=== PATIENT | male | born 1940 | race Caucasian/White ===

== ENCOUNTER 2018-12-22 15:31 | Emergency (ER) | payer MEDICARE, OTHER ==
[~2018-12-22] VITALS: Ht 185.4 cm; Wt 90.7 kg
--- NOTE | 2018-12-22 15:31 | NUR ---
PT EVE ALS BY [facility] AND PLACED IN BED 10.
[2018-12-22 15:39] VITALS: BP 141/71
--- NOTE | 2018-12-22 15:41 | NUR ---
PT EVE, PER EMS PT HAD UNWITNESSED FALL AND WAS FOUND DOWN IN PARKING LOT AT HIS WORK. PT ON ARRIVAL IS AWAKE BUT UNALBE TO ANSWER QUESTIONS ON PT HISTORY OR FOLLOW ALL COMMANDS,[id number], NO FACIAL DROP, NO SLURRED SPEECH, NO ARM DRIFT NOTED. LACERATION NOTED TO RT EYEBROW, NO ACTIVE BLEEDING. MEDHX:[id number] RX:UNKOWN
[2018-12-22] MEDS ORDERED: ASPI-1718 PO (15:45)
[2018-12-22] MEDS ORDERED: LOSA25TA32 PO (15:45)
[2018-12-22] MEDS ORDERED: PIOG15TA24 PO (15:45)
[2018-12-22] MEDS ORDERED: SYN.05 PO (15:45)
[2018-12-22] MEDS ORDERED: ISOS10TA9 PO (15:45)
[2018-12-22] MEDS ORDERED: METF500T2 PO (15:45)
[2018-12-22] MEDS ORDERED: OMEP20EC11 PO (15:45)
[2018-12-22] MEDS ORDERED: CARV3.12 PO (15:45)
[2018-12-22] MEDS ORDERED: FINA5TAB1 PO (15:45)
[2018-12-22] MEDS ORDERED: ATOR10TA PO (15:45)
[2018-12-22] MEDS ORDERED: NACL 0.9% 1,000 ML IV ONE (15:50)
--- NOTE | 2018-12-22 15:52 | NUR ---
SPOKE WITH FAVIOLA , MADE HER AWARE OF PT SITUATION, SHE IS TO COME TO HOSPITAL WHEN DAUGHTER GETS HOME. HOME PHONE - [phone]
--- NOTE | 2018-12-22 16:23 | NUR ---
PT BACK FROM CT AND PLACED IN BED 10.
[2018-12-22] MEDS ORDERED: WARF3TAB PO (17:02)
--- NOTE | 2018-12-22 17:11 | NUR ---
PT UNABLE TO PROVIDE URINE SAMPLE, YOLETTE MURRAY MADE AWARE, PER YOLETTE MURRAY OKAY TO NOT COLLECT URINE
[2018-12-22 17:41] LABS: BASOPHILS % (AUTO) 0.3 % (0.0-2.0); EOSINOPHILS # (AUTO) 0.1 K/uL (0-0.4); EOSINOPHILS % (AUTO) 0.9 % (0.0-4.0); HEMATOCRIT 38.3 % (36-52); HEMOGLOBIN 12.5 g/dL (12.0-18.0); LYMPHOCYTES # (AUTO) 0.7 K/uL (2.0-11.5); LYMPHOCYTES % (AUTO) 10.5 % (20.5-51.1); MEAN CORPUSCULAR HEMOGLOBIN 32 pg (27-31); MEAN CORPUSCULAR HGB CONC 33 g/dL (33-37); MEAN CORPUSCULAR VOLUME 97.7 fL (80-94); MONOCYTES # (AUTO) 0.3 K/uL (0.8-1.0); MONOCYTES % (AUTO) 4.3 % (1.7-9.3); NEUTROPHILS # (AUTO) 5.2 K/uL (1.8-7.7); PLATELET COUNT (AUTO) 133 K/uL (140-450); RED BLOOD CELL COUNT(AUTO) 3.92 MIL/uL (4.20-6.10); RED CELL DISTRIBUTION WIDTH 16.6 % (11.6-13.7); WHITE BLOOD COUNT (AUTO) 6.2 K/uL (4.8-10.8)
[2018-12-22 18:00] LABS: PROTHROMBIN TIME 20.1 secs (10.8-13.4)
[2018-12-22] MEDS ORDERED: KEP500 PO (18:15)
[2018-12-22] MEDS ORDERED: MULT-2527 PO (18:15)
[2018-12-22] MEDS ORDERED: CALCIUM D PO (18:15)
[2018-12-22] MEDS ORDERED: [UNRECOGNIZED DRUG - OTHER] PO (18:15)
[2018-12-22] MEDS ORDERED: XALOS OP (18:15)
[2018-12-22] MEDS ORDERED: PHYTONADIONE 10 MG/ML AMP IV ONE (18:30)
[2018-12-22] MEDS ORDERED: PROTHROMBIN COMPLEX HUMAN 500 UNITS KIT IV ONE (18:30)
--- NOTE | 2018-12-22 18:31 | NUR ---
SPOKE WITH BASIM FROM [facility] FOR REPORT.
[2018-12-22 18:45] LABS: ANION GAP 11.3 (8-16); CARBON DIOXIDE 27.8 mmol/L (21-32); CHLORIDE 106 mmol/L (98-107); POTASSIUM 4.1 mmol/L (3.5-5.1); SODIUM SERUM 141 mmol/L (136-145)
[2018-12-22] MEDS ORDERED: PHYTONADIONE 10 MG in NACL 0.9% 50 ML IV ONE (18:45)
[2018-12-22 18:46] LABS: ALBUMIN 3.5 g/dL (3.4-5.0); ASPARTATE AMINOTRANSFERASE 17 U/L (15-37); CREATININE 0.7 mg/dL (0.7-1.3); GLUCOSE 98 mg/dL (74-106); TOTAL BILIRUBIN 0.9 mg/dL (0.0-1.0); UREA NITROGEN, BLOOD 19 mg/dL (7-18)
[2018-12-22] MEDS ORDERED: LIDOCAINE/EPI 1% 1:100000 20 ML VIAL INJ ONE (18:50)
[2018-12-22] MEDS ORDERED: COMMUNICATION ORDER MC PRN (19:10)
[2018-12-22 19:55] VITALS: BP 141/69
--- NOTE | 2018-12-22 19:55 | NUR ---
Patient to be transferred to [facility] ER. Is being transferred due to [INSURANCE]. Receiving facility has accepting physician and available space. ER physician has signed transfer form. Patient or responsible republican has agreed to transfer and signed form. Patient belongings inventoried and will be sent with patient. Copy of nursing notes, lab reports, EKG, Physicians Orders and X-rays to be sent with patient. Report called to [TIERA STALLWORTH ] at receiving facility. [[facility]] ambulance service has been called for transfer. ETA is [[id number]].
--- NOTE | 2018-12-22 19:55 | NUR ---
[facility] AT BEDSIDE TO TRANSFER PATIENT TO [facility].
--- NOTE | 2018-12-22 19:58 | NUR ---
Leo reyes in ED - 12/23/18 at 0129 by EDMUND [facility] AT BEDSIDE TO TRANSPORT PT TO [facility] AT THIS TIME.
== END 2018-12-22 19:55 | disposition short-term general hospital (02) ==
LOC: MED 15:31
DX: S06.350A Traumatic hemorrhage of left cerebrum without loss of consciousness, initial encounter (principal); S01.111A Laceration without foreign body of right eyelid and periocular area, initial encounter; I48.91 Unspecified atrial fibrillation; R41.82 Altered mental status, unspecified; Z79.899 Other long term (current) drug therapy; Z79.82 Long term (current) use of aspirin; Z79.01 Long term (current) use of anticoagulants; W01.198A Fall on same level from slipping, tripping and stumbling with subsequent striking against other object, initial encounter; Y93.89 Activity, other specified; Y92.219 Unspecified school as the place of occurrence of the external cause; Y99.8 Other external cause status
CPT/HCPCS: 12011; 36415; 70450; 80053; 82140; 84484; 85025; 85610; 96361; 96365; 96375; 99291; C9132; J2001; J3430; 93005; J7030